=== PATIENT | male | born 1990 | race Caucasian/White ===

== ENCOUNTER 2017-03-13 23:35 | Emergency (ER) | payer MEDICAID ==
[~2017-03-13] VITALS: Ht 185.4 cm; Wt 145.1 kg
[2017-03-13 23:39] VITALS: BP 149/93
== END 2017-03-14 | disposition left against medical advice (07) ==
LOC: ER 23:39
DX: M79.641 Pain in right hand (principal); Z53.21 Procedure and treatment not carried out due to patient leaving prior to being seen by health care provider